=== PATIENT | male | born 1975 | race Caucasian/White ===

== ENCOUNTER 2017-05-11 20:26 | Observation (INO) ==
[2017-05-11 20:47] LABS: Basophils % 0.4 %; Eosinophils # 0.2 K/mcL (0.0-0.6); Eosinophils % 1.9 %; Hematocrit 34.8 % (37.5-50.1); Hemoglobin 11.9 g/dL (12.9-16.9); Immature Granulocytes % 0.6 % (0-4); Lymphocytes # 1.6 K/mcL (0.6-4.6); Lymphocytes % 20.3 %; Mean Corpuscular HGB Conc 34.2 g/dL (31.6-35.5); Mean Corpuscular Hemoglobin 30.8 pg (28.0-33.3); Mean Corpuscular Volume 90.2 fL (83.0-100.0); Mean Platelet Volume 10.6 fL (9.4-12.4); Monocytes # 0.6 K/mcL (0.0-1.3); Monocytes % 7.7 %; Neutrophils # 5.5 K/mcL (1.6-8.9); Platelet Count 167 K/mcL (140-400); Red Blood Count 3.86 M/mcL (4.19-5.50); Red Cell Distribution Width 13.9 % (11.5-14.5); Segmented Neutrophils % 69.1 %
--- NOTE | 2017-05-11 20:49 | Emergency Department Note ---
Disposition Clinical Impression: Polydipsia, Autism, Altered mental status, Hyponatremia Disposition: Admitted As Inpatient Condition: Fair Referrals: NONE,PCP [Primary Care Provider] - Forms: ED Satisfaction Letter Time of Disposition: 21:14 ([facility]) Head Injury HPI - General Chief complaint: ED Head Injury Stated complaint: "hit head on dryer" Time Seen by Provider: 05/11/17 20:27 Source: EMS Mode of arrival: EMS Limitations: other (unable due to autstic) Nursing Notes Reviewed: Yes Vital Signs Reviewed: Yes - History of Present Illness HPI Narrative: 42-year-old autistic male who apparently was at his home got into apparent argument with his family and struck his head on the dryer he also was reportedly running around outside no reported loss of consciousness but mom sent him in for an evaluation MOM did not come in she apparently has a cast on her leg Pt Subjective Complaint: head injury Onset (ago): Just PRN PHYSICAL THERAPIST Mechanism of Injury: other (hit head on dryer) Place: home Loss of Consciousness: no Location of injury: frontal, parietal Pain Severity: unable Other Injuries: none Associated symptoms: Reports: other (due to pt autism unable to determine) - Related Data Home Medications Medication Instructions Recorded Confirmed Amitriptyline HCl 150 mg PO HS 03/04/15 09/11/16 Propranolol HCl 40 mg PO BID 03/04/15 09/11/16 Sertraline [Zoloft] 50 mg PO DAILY 03/04/15 09/11/16 Topiramate [Topamax] 50 mg PO 1400 03/04/15 09/11/16 Quetiapine Fumarate [Seroquel] 400 mg PO HS 11/16/15 09/11/16 Topiramate [Topamax] 100 mg PO QAM AND QHS 11/16/15 09/11/16 Promethazine [Phenergan] 25 mg PO 0800,1800 09/09/16 09/11/16 Quetiapine Fumarate [Seroquel] 50 mg PO TID 09/09/16 09/11/16 hydrOXYzine HCl [Hydroxyzine HCl] 50 mg PO TID 09/09/16 09/11/16 DiphenhydraMINE [Benadryl] 25 - 50 mg PO Q4H PRN 09/11/16 09/11/16 Polyethylene Glycol 3350 17 gm PO TID PRN 09/11/16 09/11/16 [Smoothlax] Previous Rx's Medication Instructions Recorded Sodium Chloride 1 gm PO DAILY #14 tablet 09/12/16 Allergies/Adverse reactions: Allergies Allergy/AdvReac Type Severity Reaction Status Date / Time doxycycline [From Vibramycin] Allergy Rash Verified 03/04/15 14:21 Limitations: ROS unobtainable due to patients medical condition Past Medical History - Past Medical History Source: unable to obtain Medical history: Reports: hypertension, other (autistic) Surgical history: Reports: non-contributory Psychiatric history: Reports: other - Social History Smoking Status: Never smoker Smokeless Tobacco Status: No Alcohol use: Reports: none Drug use: Reports: none Physical Exam - General Limitations: other General appearance: alert, in no apparent distress, anxious - Head Head exam: atraumatic, normocephalic, normal inspection - Eye Eye exam: Present: normal appearance, PERRL, EOMI - ENT ENT exam: normal exam, normal oropharynx, mucous membranes moist - Neck Neck exam: Present: normal inspection, full ROM, trachea midline - Chest Chest inspection: Present: normal inspection, symmetric chest wall rise - Respiratory Respiratory exam: Present: normal lung sounds bilaterally - Cardiovascular Cardiovascular exam: Present: regular rate, normal rhythm, normal heart sounds - Abdominal Exam Abdominal exam: Present: soft, Non-Tender, normal bowel sounds. Absent: mass, pulsatile mass - Expanded Upper Extremity Exam Shoulder exam: Present: normal inspection, full ROM, other (On both upper extremities patient has diffuse bruising of both the upper and lower arm ages appear to be various from some being redish purple in discoloration some even being light feted yellow-green patient does have full range of motion of the extremities left upper shoulder areas warm to the touch with a little bit erythema but no step-off deformities) Arm exam: Present: normal inspection, full ROM Elbow exam: Present: normal inspection, full ROM Forearm/Wrist exam: Present: normal inspection, full ROM Hand exam: Present: normal inspection, full ROM Vascular exam: Normal: capillary refill, radial pulse - Expanded Lower Extremity Exam Hip/Pelvis exam: Present: normal inspection, full ROM Upper leg exam: Present: normal inspection, full ROM Knee exam: Present: normal inspection, full ROM Lower leg exam: Present: normal inspection, full ROM Ankle exam: Present: normal inspection, full ROM Foot/toe exam: Present: normal inspection, full ROM Neurovascular/Tendon exam: Present: normal capillary refill, normal fine/light touch. Absent: motor deficit, sensory deficit, tendon deficit Gait: not tested/not observed - Back Exam Back exam: Present: normal inspection, full ROM. Absent: muscle spasm - Neurological Exam Neurological exam: Present: alert, CN II-XII intact - Psychiatric Psychiatric exam: Present: flat affect - Skin Skin exam: Present: warm, dry, intact, normal color, other (Heavy acne noted about the face I am unable to find any lacerations about the calvarium) Course Course Narrative: She was seen and examined CBC and Chem-[address] a [address] of the head were performed for the areas of injury he has multiple bruising over the arms but he does not appear to be uncomfortable with axial loading of the extremities as a result awaiting results to see if there is any evidence of any intercranial injury or abnormality of the labs which may precipitate his agitation states tonight - Reevaluation(s) Reevaluation #1: Lab comes back and shows that the patient is hyponatremic this may be the reason for some increased agitation outside his normal range will admit the patient watch him overnight and Vital Signs Temperature 99.0 F 05/11/17 20:27 Pulse Rate 76 05/11/17 20:27 Respiratory Rate 17 05/11/17 20:27 Blood Pressure 137/85 05/11/17 20:27 O2 Sat by Pulse Oximetry 99 05/11/17 20:27 Temperature 99.0 F 05/11/17 20:27 Pulse Rate 76 05/11/17 20:27 Respiratory Rate 17 05/11/17 20:27 Blood Pressure 137/85 05/11/17 20:27 O2 Sat by Pulse Oximetry 99 05/11/17 20:27 Oxygen Delivery Oxygen Delivery Room Air Head Injury - Differential Diagnosis Differential Diagnosis: Likely: closed head injury - Medical Records Medical records reviewed: Yes I reviewed the patient's medical records. - Lab Data Lab results reviewed: Yes I reviewed the patient's lab results. Result diagrams: 05/11/17 20:42 05/11/17 20:42 Lab Results 05/11/17 05/11/17 Range/Units 20:42 20:42 WBC 7.9 (4.3-11.1) K/mcL RBC 3.86 L (4.19-5.50) M/mcL Hgb 11.9 L (12.9-16.9) g/dL Hct 34.8 L (37.5-50.1) % MCV 90.2 (83.0-100.0) fL MCH 30.8 (28.0-33.3) pg MCHC 34.2 (31.6-35.5) g/dL RDW 13.9 (11.5-14.5) % Plt Count 167 (140-400) K/mcL MPV 10.6 (9.4-12.4) fL Immature Gran % 0.6 (0-4) % Seg Neutrophils % 69.1 % Lymphocytes % 20.3 % Monocytes % 7.7 % Eosinophils % 1.9 % Basophils % 0.4 % Neutrophils # 5.5 (1.6-8.9) K/mcL Lymphocytes # 1.6 (0.6-4.6) K/mcL Monocytes # 0.6 (0.0-1.3) K/mcL Eosinophils # 0.2 (0.0-0.6) K/mcL Basophils # 0.0 (0.0-0.2) K/mcL Sodium 128 L (136-145) mEq/L Potassium 3.4 L (3.5-5.1) mEq/L Chloride 100 (98-107) mEq/L Carbon Dioxide 20 L (23-29) mEq/L BUN 10 (6-20) mg/dL Creatinine 0.90 (0.70-1.30) mg/dL Est GFR ( Amer) > 60 (> 60) Est GFR (Non-Af Amer) > 60 (> 60) BUN/Creatinine Ratio 11 (6-26) Glucose 83 (70-105) mg/dL Calculated Osmolality 264 L (280-300) Calcium 8.7 (8.6-10.3) mg/dL - Radiology Data Radiology results reviewed: Yes I reviewed the patient's radiology results. Critical Care Time Critical Care Time: No
[2017-05-11 21:01] LABS: BUN/Creatinine Ratio 11 (6-26); Blood Urea Nitrogen 10 mg/dL (6-20); Calcium 8.7 mg/dL (8.6-10.3); Carbon Dioxide 20 mEq/L (23-29); Chloride 100 mEq/L (98-107); Glucose 83 mg/dL (70-105); Osmolality,Calculated 264 (280-300); Potassium 3.4 mEq/L (3.5-5.1); Sodium 128 mEq/L (136-145); eGFR For Non-African Americans > 60 (> 60)
[2017-05-11] MEDS ORDERED: Naloxone 0.4 MG/ML INJ IVP PRN (21:16)
[2017-05-12 06:27] LABS: Basophils % 0.5 %; Eosinophils # 0.2 K/mcL (0.0-0.6); Eosinophils % 2.8 %; Hematocrit 36.8 % (37.5-50.1); Hemoglobin 12.6 g/dL (12.9-16.9); Immature Granulocytes % 0.6 % (0-4); Lymphocytes % 31.9 %; Mean Corpuscular HGB Conc 34.2 g/dL (31.6-35.5); Mean Corpuscular Hemoglobin 30.9 pg (28.0-33.3); Mean Corpuscular Volume 90.2 fL (83.0-100.0); Mean Platelet Volume 10.8 fL (9.4-12.4); Monocytes # 0.7 K/mcL (0.0-1.3); Monocytes % 10.5 %; Neutrophils # 3.4 K/mcL (1.6-8.9); Platelet Count 181 K/mcL (140-400); Red Blood Count 4.08 M/mcL (4.19-5.50); Red Cell Distribution Width 13.8 % (11.5-14.5); Segmented Neutrophils % 53.7 %
[2017-05-12 06:51] LABS: BUN/Creatinine Ratio 11 (6-26); Blood Urea Nitrogen 9 mg/dL (6-20); Calcium 9.2 mg/dL (8.6-10.3); Carbon Dioxide 21 mEq/L (23-29); Chloride 105 mEq/L (98-107); Glucose 90 mg/dL (70-105); Osmolality,Calculated 276 (280-300); Potassium 3.7 mEq/L (3.5-5.1); Sodium 134 mEq/L (136-145); eGFR For Non-African Americans > 60 (> 60)
[2017-05-12] MEDS: Topiramate 100 MG TABLET PO SCH ×2 (08:54→21:29)
[2017-05-12] MEDS: hydrOXYzine pamoate 25 MG CAPSULE PO SCH ×3 (08:54→21:28)
--- NOTE | 2017-05-12 11:48 | Internal Med History&Physical ---
Date of Encounter: 05/12/17 Time of Encounter: 11:30 Assessment and Plan (1) Hyponatremia Current visit: Yes Status: Acute Likely due to excessive fluid ingestion from review of available records. (2) Hypokalemia Current visit: Yes Status: Acute Now corrected with potassium 3.7 today. (3) Anemia Current visit: Yes Status: Chronic Present on all labs in archives since November 2013. Qualifiers: Anemia type: unspecified type Qualified Code(s): D64.9 - Anemia, unspecified Internal Medicine - H&P: HPI Chief complaint: Hyponatremia, anemia, hypokalemia Admitted From: Emergency Dept Plans for Post Hospital Care: Home History of present illness: Mr. Zelaya is a 42 year old male who is nonverbal. He was brought to emergency room after he reportedly hit his head on a clothes dryer home while running following an argument with family members. Details are not known. The patient has autism and is nonverbal. He was evaluated in emergency room and found to have anemia, hypokalemia, and hyponatremia. [facility] care [facility]. Past Med Surg Social Fam HX - Past Medical History Medical history: hypertension, other Psychiatric history: other - Past Surgical History Surgical History: non-contributory - Social History Smoking Status: Never smoker Smokeless Tobacco Status: No Alcohol use: none Drug use: none - Family History Father Hx Family Endocrine Disorder: Yes Internal Medicine - H&P: Meds Amitriptyline HCl 150 mg PO HS 03/04/15 [History] Propranolol HCl 40 mg PO BID 03/04/15 [History] Sertraline [Zoloft] 50 mg PO DAILY 03/04/15 [History] Topiramate [Topamax] 50 mg PO 1400 03/04/15 [History] Quetiapine Fumarate [Seroquel] 400 mg PO HS 11/16/15 [History] Topiramate [Topamax] 100 mg PO QAM AND QHS 11/16/15 [History] Promethazine [Phenergan] 25 mg PO 0800,1800 09/09/16 [History] Quetiapine Fumarate [Seroquel] 50 mg PO TID 09/09/16 [History] hydrOXYzine HCl [Hydroxyzine HCl] 50 mg PO TID 09/09/16 [History] DiphenhydraMINE [Benadryl] 25 - 50 mg PO Q4H PRN 09/11/16 [History] Polyethylene Glycol 3350 [Smoothlax] 17 gm PO TID PRN 09/11/16 [History] Sodium Chloride 1 gm PO DAILY #14 tablet 09/12/16 [Rx] 3 Allergy/AdvReac Type Severity Reaction Status Date / Time doxycycline [From Vibramycin] Allergy Rash Verified 05/11/17 21:25 All Systems PM: A 10-system review of systems was performed and is negative for pertinent findings except as documented above in the HPI. Review of systems: Review of systems is obtained from H&P of September 2013. Informant at that time was his mother. Gen.: His weight has been stable at approximately 73 kg since September 2013 Cardiovascular: He has history of hypertension but no SC or heart failure angina DVT or pulmonary embolus Respiratory: He is a lifelong nonsmoker and has no known chronic lung disease. He had pneumonia 2003 GI: There is no known disorder of liver gallbladder or endocrine pancreas : No history of hematuria or dysuria or kidney stones Neurologic: He has been diagnosed with autism. There have been no large distribution strokes or seizures. He has seen several neurologists. Endocrine: He has no known diabetes thyroid disease or hyperlipidemia Hematology/oncology: He has had anemia documented and has seen Dr. Huber in [place]. He has no known internal malignancies Psychiatric: He has no anxiety or depression or other mental health issues. He has seen a psychiatrist in the past for behaviors felt related to autism Mr. Terrazas: He has no significant arthritis, DJD, gout, or other bone joint or muscle disorders. - Constitutional Vitals: Temp Pulse Resp BP Pulse Ox 97.5 F L 78 16 149/87 97 05/12/17 01:16 05/12/17 01:16 05/12/17 01:16 05/12/17 01:16 05/12/17 01:36 Exam: Gen.: He is a well developed well nourished male lying quietly in bed who appears in no acute distress. He follows a few but not all commands. HEENT: There is no obvious facial trauma. Eyes: EOMI. There is no sclerae icterus. Mouth: Mucosa is moist Neck: There is no thyromegaly or adenopathy noted. Heart: Regular without murmurs gallops or ectopics Lungs: No wheezes or crackles are heard. Abdomen: Soft and nontender. No masses or guarding are noted. Extremities: There is no edema of his legs. Posterior tibial pulses are trace palpable bilaterally. He has no DJD changes of his hands. Neurologic: Mental status: He follows a few commands. He does not cooperate with all requests during exam. Cranial nerves: Facial movements are minimal but symmetric. EOMI. He will not protrude his tongue. Motor: He has equal arm tone on passive range of motion. He does not follow command for pronator drift testing. No further neurologic testing is attempted. Skin: Warm and dry Internal Med - H&P Results - Labs CBC & Chem 7: 05/12/17 06:12 05/12/17 06:12 Labs: Short CBC 05/12/17 Range/Units 06:12 WBC 6.4 (4.3-11.1) K/mcL Hgb 12.6 L (12.9-16.9) g/dL Hct 36.8 L (37.5-50.1) % Plt Count 181 (140-400) K/mcL Neutrophils # 3.4 (1.6-8.9) K/mcL BMP 05/12/17 06:12 Sodium 134 L Potassium 3.7 Chloride 105 Carbon Dioxide 21 L BUN 9 Creatinine 0.82 Glucose 90 Calcium 9.2
--- NOTE | 2017-05-12 12:01 | Discharge Summary ---
Date of Encounter: 05/12/17 Time of Encounter: 11:45 - Discharge Diagnosis (1) Hyponatremia Priority: Primary Status: Acute (2) Hypokalemia Priority: Secondary Status: Resolved (3) Anemia Priority: Secondary Status: Chronic Qualifiers: Anemia type: unspecified type Qualified Code(s): D64.9 - Anemia, unspecified - Discharge Medications Home Medications: Amitriptyline HCl 150 mg PO HS 03/04/15 [History] Propranolol HCl 40 mg PO BID 03/04/15 [History] Sertraline [Zoloft] 50 mg PO DAILY 03/04/15 [History] Topiramate [Topamax] 50 mg PO 1400 03/04/15 [History] Quetiapine Fumarate [Seroquel] 400 mg PO HS 11/16/15 [History] Topiramate [Topamax] 100 mg PO QAM AND QHS 11/16/15 [History] Promethazine [Phenergan] 25 mg PO 0800,1800 09/09/16 [History] Quetiapine Fumarate [Seroquel] 50 mg PO TID 09/09/16 [History] hydrOXYzine HCl [Hydroxyzine HCl] 50 mg PO TID 09/09/16 [History] DiphenhydraMINE [Benadryl] 25 - 50 mg PO Q4H PRN 09/11/16 [History] Polyethylene Glycol 3350 [Smoothlax] 17 gm PO TID PRN 09/11/16 [History] Sodium Chloride 1 gm PO DAILY #14 tablet 09/12/16 [Rx] Allergies/Adverse Reactions: 3 Allergy/AdvReac Type Severity Reaction Status Date / Time doxycycline [From Vibramycin] Allergy Rash Verified 05/11/17 21:25 Date of admission: 05/12/17 00:13 Primary care physician: PCP NONE - Patient Status Disposition: Home, Self-Care Condition: Fair Overall status at discharge: patient is progressing back to baseline - Discharge Instructions Follow Up With: NONE,PCP [Primary Care Provider] - 1 week - Diet and Activity Activity: resume usual activities as tolerated Diet: advance to your usual diet, other Hospital course: Mr. Zelaya is a 42 year old male who is nonverbal. He was brought to emergency room after he reportedly hit his head on a clothes dryer home while running following an argument with family members. Details are not known. The patient has autism and is nonverbal. He was evaluated in emergency room and found to have anemia, hypokalemia, and hyponatremia. He was admitted to [facility] for ongoing care needs. Initial orders were written by the emergency room physician. I saw him on May 12 and performed the history physical and discharge. Hemoglobin galindo to 12.6 by the following day. Sodium improved to 134 and potassium normalized at 3.7. His vital signs remained stable and I felt he was safe for discharge home. He will follow with his PCP within one week. I suspect hyponatremia is likely due to excessive water ingestion. Fluid restriction should be imposed if clinically significant hyponatremia persists. - Time Spent with Patient Total time spent providing and/or coordinating discharge services: - Constitutional Vitals: Temp Pulse Resp BP Pulse Ox 97.5 F L 78 16 149/87 97 05/12/17 01:16 05/12/17 01:16 05/12/17 01:16 05/12/17 01:16 05/12/17 01:36
[2017-05-12] MEDS: Topiramate 25 MG TABLET PO SCH (13:54)
[2017-05-13] MEDS: hydrOXYzine pamoate 25 MG CAPSULE PO SCH ×3 (08:44→21:01)
[2017-05-13] MEDS: Topiramate 100 MG TABLET PO SCH ×2 (08:44→21:01)
--- NOTE | 2017-05-13 14:55 | Internal Med Progress Note ---
Date of Encounter: 05/13/17 Time of Encounter: 14:45 - Assessment and plan (1) Hyponatremia Current Visit: Yes Status: Acute Assessment and plan: May 13. Likely secondary to excessive fluid ingestion. His fluid intake during hospitalization has been monitored. (2) Hypokalemia Current Visit: Yes Status: Resolved Assessment and plan: May 13. Potassium level normalized yesterday. (3) Anemia Current Visit: Yes Status: Chronic Assessment and plan: May 13. Chronic. Anemia testing was not ordered yesterday since he was being discharged. This can be done after hospital discharge. Qualifiers: Anemia type: unspecified type Qualified Code(s): D64.9 - Anemia, unspecified - Subjective Interval history: May 13. No new problems have arisen. His discharge was canceled yesterday after it was learned he would not have adequate care in the home environment. Social service is now involved to coordinate short-term placement while his mother/caregiver recovers from foot injury. - Constitutional Vitals: Temp Pulse Resp BP Pulse Ox 97.6 F 72 18 112/86 94 05/13/17 11:09 05/13/17 11:09 05/13/17 11:09 05/13/17 11:09 05/13/17 11:09 Exam: He is lying in bed resting comfortably. He remains nonverbal. Extremities show no edema. Heart is regular without murmurs gallops or ectopics. Lungs are clear anteriorly. Internal Medicine: Result - Labs CBC & Chem 7: 05/12/17 06:12 05/12/17 06:12 Consult Discharge Plan - Plan Referrals: NONE,PCP [Primary Care Provider] - 1 week
[2017-05-13] MEDS: Topiramate 25 MG TABLET PO SCH (15:00)
[2017-05-14 07:06] VITALS: BP 130/72
[2017-05-14] MEDS: Topiramate 100 MG TABLET PO SCH (08:01)
[2017-05-14] MEDS: hydrOXYzine pamoate 25 MG CAPSULE PO SCH ×2 (08:01→16:30)
[2017-05-14] MEDS ORDERED: ALPRAZolam 0.5 MG TABLET PO ONE (10:46)
--- NOTE | 2017-05-14 15:07 | Discharge Summary ---
Date of Encounter: 05/14/17 Time of Encounter: 15:00 - Discharge Diagnosis (1) Hyponatremia Priority: Primary Status: Acute (2) Hypokalemia Priority: Secondary Status: Resolved (3) Anemia Priority: Secondary Status: Chronic Qualifiers: Anemia type: unspecified type Qualified Code(s): D64.9 - Anemia, unspecified - Discharge Medications Prescriptions: ALPRAZolam [Xanax 1 MG Tablet] 1 mg PO TID PRN 20 Days #60 tablet PRN Reason: Anxiety Metoprolol XL (24 HR) Succ [Toprol XL] 50 mg PO DAILY 365 Days tab.er.24h Home Medications: Amitriptyline HCl 150 mg PO HS 03/04/15 [History] Sertraline [Zoloft] 50 mg PO DAILY 03/04/15 [History] Topiramate [Topamax] 50 mg PO 1400 03/04/15 [History] Quetiapine Fumarate [Seroquel] 400 mg PO HS 11/16/15 [History] Topiramate [Topamax] 100 mg PO QAM AND QHS 11/16/15 [History] Promethazine [Phenergan] 25 mg PO 0800,1800 09/09/16 [History] Quetiapine Fumarate [Seroquel] 50 mg PO TID 09/09/16 [History] hydrOXYzine HCl [Hydroxyzine HCl] 50 mg PO TID 09/09/16 [History] DiphenhydraMINE [Benadryl] 25 - 50 mg PO Q4H PRN 09/11/16 [History] Polyethylene Glycol 3350 [Smoothlax] 17 gm PO TID PRN 09/11/16 [History] ALPRAZolam [Xanax 1 MG Tablet] 1 mg PO TID PRN 20 Days #60 tablet 05/14/17 [Rx] Metoprolol XL (24 HR) Succ [Toprol XL] 50 mg PO DAILY 365 Days tab.er.24h 05/14 [Rx] Allergies/Adverse Reactions: 3 Allergy/AdvReac Type Severity Reaction Status Date / Time doxycycline [From Vibramycin] Allergy Rash Verified 05/11/17 21:25 Date of admission: 05/12/17 00:13 Primary care physician: PCP NONE - Patient Status Disposition: Transfer SNF Condition: Fair Functional capacity at discharge: independent ambulation Overall status at discharge: patient is progressing back to baseline - Discharge Instructions - Diet and Activity Activity: resume usual activities as tolerated Diet: regular diet Hospital course: Mr. Zelaya is a 42 year old male who is nonverbal. He was brought to emergency room after he reportedly hit his head on a clothes dryer home while running following an argument with family members. Details are not known. The patient has autism and is nonverbal. He was evaluated in emergency room and found to have anemia, hypokalemia, and hyponatremia. He was admitted to [facility] for ongoing care needs. Initial orders were written by the emergency room physician. I saw him on May 12 and performed the history and physical. Follow-up lab work on 05/12 showed sodium improved 134 and potassium improved to 3.7. Hemoglobin had risen to 12.6. No new problems developed during his hospital stay. Social service was consulted for placement issues. On May arrangements were complete for him to be discharged to [facility] until further disposition can be arranged. - Time Spent with Patient Total time spent providing and/or coordinating discharge services: - Constitutional Vitals: Temp Pulse Resp BP Pulse Ox 98.1 F 79 17 130/72 96 05/14/17 06:10 05/14/17 06:10 05/14/17 06:10 05/14/17 06:10 05/14/17 06:10
--- NOTE | 2017-05-14 15:16 | Physician Discharge Referral ---
ExtendedCare Referral Info Transfer To: [facility] Provider in Charge: Chad Provider in Charge after Transfer: PCP (Chad) - Diagnosis (1) Hyponatremia Priority: Primary Status: Acute (2) Hypokalemia Priority: Secondary Status: Resolved (3) Anemia Priority: Secondary Status: Chronic Prognosis: Fair Aware of Diagnosis: Family Aware of Prognosis: Family - Transfer Medications Prescriptions: ALPRAZolam [Xanax 1 MG Tablet] 1 mg PO TID PRN 20 Days #60 tablet PRN Reason: Anxiety Metoprolol XL (24 HR) Succ [Toprol XL] 50 mg PO DAILY 365 Days tab.er.24h Home Medications: Amitriptyline HCl 150 mg PO HS 03/04/15 [History] Sertraline [Zoloft] 50 mg PO DAILY 03/04/15 [History] Topiramate [Topamax] 50 mg PO 1400 03/04/15 [History] Quetiapine Fumarate [Seroquel] 400 mg PO HS 11/16/15 [History] Topiramate [Topamax] 100 mg PO QAM AND QHS 11/16/15 [History] Promethazine [Phenergan] 25 mg PO 0800,1800 09/09/16 [History] Quetiapine Fumarate [Seroquel] 50 mg PO TID 09/09/16 [History] hydrOXYzine HCl [Hydroxyzine HCl] 50 mg PO TID 09/09/16 [History] DiphenhydraMINE [Benadryl] 25 - 50 mg PO Q4H PRN 09/11/16 [History] Polyethylene Glycol 3350 [Smoothlax] 17 gm PO TID PRN 09/11/16 [History] ALPRAZolam [Xanax 1 MG Tablet] 1 mg PO TID PRN 20 Days #60 tablet 05/14/17 [Rx] Metoprolol XL (24 HR) Succ [Toprol XL] 50 mg PO DAILY 365 Days tab.er.24h 05/14 [Rx] Allergies/Adverse Reactions: 3 Allergy/AdvReac Type Severity Reaction Status Date / Time doxycycline [From Vibramycin] Allergy Rash Verified 05/11/17 21:25 - Respiratory Orders Smoking Cessation: Smoking cessation has been advised. For more information, call the [place] Tobacco Quit Line at 7-497-RMEN-NOW. - Mobility Orders Ambulate - Rehabiliation Orders Rehab Potential: Poor - Diet Orders Regular CERTIFICATION: I certify that the transfer of the above named patient to an Extended Care Facility is necessary for the continuing treatment of the diagnosis listed. The above information is true and accurate reflection of patient's current condition. Confidential - Redisclosure prohibited without a patient's written consent.
[2017-05-14] MEDS: Topiramate 25 MG TABLET PO SCH (16:30)
== END 2017-05-14 17:00 ==
LOC: INPPIK 20:26 → EMEROOPIK 20:26 → INPPIK 05-12 01:10
PROVIDERS: ADMIT Emergency Medicine; ATTEND Internal Medicine